=== PATIENT | female | born 1955 | race American Indian/Alaskan Native ===

== ENCOUNTER 2019-04-18 04:10 | Emergency (ER) | payer BC ==
[2019-04-18 06:53] VITALS: BP 160/80
--- NOTE | 2019-04-18 08:17 | Emergency Department Report ---
ED General Adult HPI - General Chief complaint: High BP Stated complaint: ELEVATED BP Time Seen by Provider: 04/18/19 07:26 Source: patient Mode of arrival: Ambulatory Limitations: No Limitations - History of Present Illness Initial comments: 63-year-old -[place] female patient with history of asthma and glaucoma complains of elevated blood pressure x last night. Patient states she fell asleep and woke from her sleep feeling dizzy and checked her blood pressure and it was 190/110. She denies any chest pain, shortness of breath, vision changes, numbness/tingling/weakness in her limbs, confusion, or difficulty with speech. She states she has a very mild headache currently that is a 2/10 in severity. Patient states she took and HCTZ when she noticed her BP was high. She denies history of hypertension, however states she has HCTZ for intermittent swelling in her legs. Patient states she was started on Qvar about 2 months ago by her buffer chrome for her asthma and believes the elevated blood pressure is steroid-induced. ED Review of Systems ROS: Stated complaint: ELEVATED BP Other details as noted in HPI Constitutional: denies: chills, diaphoresis, fever, malaise, weakness Eyes: denies: eye pain, vision change ENT: denies: throat pain, hearing loss Respiratory: denies: cough, shortness of breath Cardiovascular: denies: chest pain, palpitations, syncope Endocrine: no symptoms reported Gastrointestinal: denies: abdominal pain, nausea, vomiting Genitourinary: denies: urgency, dysuria, frequency, hematuria Musculoskeletal: denies: back pain Skin: denies: rash, lesions Neurological: headache. denies: weakness, paresthesias Psychiatric: denies: anxiety, depression ED Past Medical Hx - Past Medical History Hx Hypertension: Yes - Social History Smoking Status: Never Smoker Substance Use Type: None ED Physical Exam - General Limitations: No Limitations General appearance: alert, in no apparent distress - Head Head exam: Present: atraumatic, normocephalic - Eye Eye exam: Present: normal appearance, PERRL. Absent: scleral icterus - ENT ENT exam: Present: normal exam - Neck Neck exam: Present: normal inspection, full ROM. Absent: tenderness - Respiratory Respiratory exam: Present: normal lung sounds bilaterally. Absent: respiratory distress - Cardiovascular Cardiovascular Exam: Present: regular rate, normal rhythm. Absent: systolic murmur, diastolic murmur, rubs, gallop - Extremities Exam Extremities exam: Present: normal inspection, full ROM. Absent: pedal edema, calf tenderness - Back Exam Back exam: Present: normal inspection - Neurological Exam Neurological exam: Present: alert, oriented X3, CN II-XII intact, normal gait. Absent: motor sensory deficit - Expanded Neurological Exam Expanded Speech: Present: fluid speech Cerebellar function: Finger to Nose: Normal, Heel to Nuñez: Normal, Romberg: Normal Upper motor neuron: Pronator Drift: Normal Sensory exam: Upper Extremity Light Touch: Normal, Lower Extremity Light Touch: Normal Motor strength exam: RUE: 5, LUE: 5, RLE: 5, LLE: 5 - Psychiatric Psychiatric exam: Present: normal affect, normal mood - Skin Skin exam: Present: warm, dry, intact, normal color. Absent: rash ED Course Vital Signs 04/18/19 04/18/19 04:13 06:50 Temperature 97.6 F Pulse Rate 90 83 Respiratory 18 17 Rate Blood Pressure 157/76 Blood Pressure 160/80 [Right] O2 Sat by Pulse 100 100 Oximetry ED Medical Decision Making - Radiology Data Radiology results: report reviewed - Medical Decision Making 63-year-old -[place] female patient with history of asthma and glaucoma complains of elevated blood pressure x last night. Patient states she fell asleep off and woke from her sleep feeling dizzy and checked her blood pressure and it was 190/110. BP here in ED is at 157/76. She does complain of a mild 2/10 headache. She denies any red flag symptoms. Neuro exam is normal. Patient offered lab testing, however she declines and states she will follow up with her primary care provider in the next few days. Discussed blood pressures and symptoms that should prompt immediate return to the ED, patient verbalizes understanding. Recommend patient follows up within 1-2 days with PCP. Critical care attestation.: If time is entered above; I have spent that time in minutes in the direct care of this critically ill patient, excluding procedure time. ED Disposition Clinical Impression: Elevated blood pressure reading Disposition: DC-01 TO HOME OR SELFCARE Is pt being admited?: No Condition: Stable Instructions: How to Take a Blood Pressure (ED), Hypertension (ED) Referrals: PRIMARY CARE, [Primary Care Provider] - 2-3 Days Forms: Work/School Release Form(ED)
== END 2019-04-18 08:30 | disposition home or self-care (01) ==
LOC: ED 04:10
DX: I10 Essential (primary) hypertension (principal)